=== PATIENT | female | born 1985 | race Caucasian/White ===

== ENCOUNTER → 2017-03-11 | Day surgery (SDC) | payer SELFPAY ==
[~2017-03-11] MED LIST: BACITRACIN 15 GM TUBE TOPICAL OINTMENT ONE; BUPIVACAINE HCL/PF 2.5 MG/ML - 30 ML VIAL IJ ONE; DEXAMETHASONE SOD PHOSPHATE 4 MG/1 ML VIAL ONE; ENOXAPARIN NA (PORCINE) 40 MG/0.4 ML DISP.SYRIN SQ SCH; GENTAMICIN SO4 80 MG/2 ML VIAL ONE; GUM MASTIC/STORAX/MSAL/ALCOHOL 1 DRP DROPSBTL MC ONE; LIDOCAINE 1%/EPI 1:100000 (20 ML MULTI DOSE VIAL) ONE; LIDOCAINE HCL 1%, 10 MG/ML (20ML VIAL) ONE; LIDOCAINE HCL/PF 2% SDV 5ML VIAL ONE; ONDANSETRON 4 MG/2 ML VIAL IVPUSH PRN; ONDANSETRON 4 MG/2 ML VIAL ONE; PROMETHAZINE HCL 25 MG/1 ML VIAL IVPUSH PRN; SCOPOLAMINE HYDROBROMIDE 1 PATCH PATCH.TD72 ONE; ceFAZolin SODIUM 1 GM VIAL ONE; oxyCODONE HCL 5 MG TABLET PO PRN
[2017-03-11 07:39] VITALS: BMI 32.1
[2017-03-11] MEDS: HYDROmorphone HCL CARPU-JECT 1 MG/1 ML DISP.SYRIN IVPUSH PRN ×2 (19:20→19:40)
[2017-03-11 20:45] VITALS: BP 116/50; PULSE 76; TEMP 97
--- NOTE | 2017-03-16 14:39 | PATH ---
Surgical Pathology Report Patient Name: ELZBIETA CARLOS [facility]. Rec. #: [id number] /Age/Gender: 1985 (Age: 31) / F Account: [id number] Location: [facility] AMBULATORY Taken: 03/11/2017 Received: 03/11/2017 Reported: 03/16/2017 Physicians: Marietta Pichardo M.D. Specimen(s) Received A: BILATERAL BREAST EXPLANTS B: LEFT ARM SKIN C: RIGHT ARM SKIN D: LEFT BREAST SCAR Clinical History Cosmetic Final Diagnosis A. BILATERAL BREAST EXPLANTS: EXPLANTS, DESCRIBED (GROSS EXAMINATION ONLY). B. SKIN, LEFT ARM, EXCISION: SKIN AND ADIPOSE TISSUE WITH NO PATHOLOGIC FINDINGS. C. SKIN, RIGHT ARM, EXCISION: SKIN AND ADIPOSE TISSUE WITH NO PATHOLOGIC FINDINGS. D. SCAR, LEFT BREAST, EXCISION: SKIN WITH SCAR. Electronically Signed Veronica Olvera M.D. Gross Description A. Received fresh labeled "bilateral breast explants," are 2 clear, rubbery breast implants averaging 12.5 cm in diameter and 3 cm in depth. No soft tissue is present. No sections are submitted, gross only. B. Received in formalin labeled "left arm skin," is a 19.0 x 2.0 cm davis, elliptical, unoriented portion of skin excised to a depth of 0.9 cm. No discrete lesions are identified. [employer] sections are submitted in one cassette. C. Received in formalin labeled "right arm skin," is a 17.0 x 1.7 cm davis, elliptical, unoriented portion of skin excised to a depth of 1.5 cm. No discrete lesions are identified. Also received within the same container are 3 davis skin shaves ranging from 1.9 x 0.7 to 2.5 x 0.7 cm. [employer] sections are submitted in one cassette. D. Received in formalin labeled "left breast scar," is a 4.2 x 0.5 cm davis, irregular, unoriented skin shave. The epidermal surface displays a possible well healed scar. [employer] sections are submitted in one cassette. 03/14/2017 [place]udi03/14/2017
== END | disposition home or self-care (01) ==
LOC: FASU 07:21
PROVIDERS: ATTEND Surgery
PROC: 0J0D0ZZ Alteration of Right Upper Arm Subcutaneous Tissue and Fascia, Open Approach (ICD-10-PCS; 2017-03-11)
PROC: 0HUV0JZ Supplement Bilateral Breast with Synthetic Substitute, Open Approach (ICD-10-PCS; 2017-03-11)
PROC: 0HPU0JZ Removal of Synthetic Substitute from Left Breast, Open Approach (ICD-10-PCS; 2017-03-11)
PROC: 0HPT0JZ Removal of Synthetic Substitute from Right Breast, Open Approach (ICD-10-PCS; 2017-03-11)
PROC: 0HUU0JZ Supplement Left Breast with Synthetic Substitute, Open Approach (ICD-10-PCS; 2017-03-11)
PROC: 0HUT0JZ Supplement Right Breast with Synthetic Substitute, Open Approach (ICD-10-PCS; 2017-03-11)
PROC: 0HBVXZZ (ICD-10-PCS; 2017-03-11)
PROC: 0J0F3ZZ Alteration of Left Upper Arm Subcutaneous Tissue and Fascia, Percutaneous Approach (ICD-10-PCS; principal; 2017-03-11 09:20)
PROC: 0J0D3ZZ Alteration of Right Upper Arm Subcutaneous Tissue and Fascia, Percutaneous Approach (ICD-10-PCS; 2017-03-11 09:20)
PROC: 0J0F0ZZ Alteration of Left Upper Arm Subcutaneous Tissue and Fascia, Open Approach (ICD-10-PCS; 2017-03-11 09:20)
DX: Z41.1 Encounter for cosmetic surgery (principal); L90.5 Scar conditions and fibrosis of skin
CPT/HCPCS: 71010-TC; 84703; 88300-TC; 88302-TC; 94760